=== PATIENT | male | born 1970 | race Caucasian/White ===

== ENCOUNTER 2017-02-05 17:15 | Emergency (ER) | payer MEDICAID ==
[~2017-02-05] VITALS: Ht 165.1 cm; Wt 84.1 kg
[2017-02-05] MEDS ORDERED: BACITRACIN 0.9 GM PACKET OINTMENT TP ONE (20:00)
[2017-02-05] MEDS ORDERED: ACETAMINOPHEN 325 MG TABLET PO ONE (20:00)
[2017-02-05 20:05] VITALS: BP 124/84
== END 2017-02-05 20:42 | disposition home or self-care (01) ==
LOC: EMS 17:16
DX: S61.012A Laceration without foreign body of left thumb without damage to nail, initial encounter (principal); W27.0XXA Contact with workbench tool, initial encounter; Y93.89 Activity, other specified; Y92.89 Other specified places as the place of occurrence of the external cause; Y99.8 Other external cause status
CPT/HCPCS: 99284